=== PATIENT | male | born 1965 | race Caucasian/White ===

== ENCOUNTER 2023-11-28 15:33 | Emergency (ER) | payer BC ==
[2023-11-28] MEDS: diphenhydrAMINE 50 MG/ML SDV IVPUSH ONE (16:00)
[2023-11-28] MEDS: methylPREDNISolone Sodium Succinate 125 MG/2 ML SDV IVPUSH ONE (16:00)
[2023-11-28] MEDS: Sodium Chloride 0.9% 10 ML Syringe FLUSH PRN (16:00)
[2023-11-28] MEDS: Famotidine 20 MG/2 ML SDV IVPUSH ONE (16:28)
[2023-11-28] MEDS: EPINEPHrine 1 MG/ML SDV IM ONE (16:37)
[2023-11-28 19:43] VITALS: BP 155/87; PULSE 78
== END 2023-11-28 19:40 | disposition home or self-care (01) ==
LOC: JD.ED 15:33
DX: T78.3XXA Angioneurotic edema, initial encounter (principal); I10 Essential (primary) hypertension; E11.9 Type 2 diabetes mellitus without complications; Z79.84 Long term (current) use of oral hypoglycemic drugs; Z79.899 Other long term (current) drug therapy; X58.XXXA Exposure to other specified factors, initial encounter
CPT/HCPCS: 96372; 96374; 96375; 99283; J0171; J1200; J2919; J3490

== ENCOUNTER 2023-12-13 07:33 | Emergency (ER) | payer BC ==
[2023-12-13] MEDS: Sodium Chloride 0.9% 10 ML Syringe FLUSH PRN (08:08)
[2023-12-13] MEDS: methylPREDNISolone Sodium Succinate 125 MG/2 ML SDV IVPUSH ONE (08:09)
[2023-12-13] MEDS: Famotidine 20 MG/2 ML SDV IVPUSH ONE (08:09)
[2023-12-13] MEDS: diphenhydrAMINE 50 MG/ML SDV IVPUSH ONE (08:09)
[2023-12-13 10:00] VITALS: BP 132/87; PULSE 77
== END 2023-12-13 09:25 | disposition home or self-care (01) ==
LOC: JD.ED 07:33
DX: T78.3XXA Angioneurotic edema, initial encounter (principal); I10 Essential (primary) hypertension; E11.9 Type 2 diabetes mellitus without complications; Z86.16 Personal history of COVID-19; Z79.84 Long term (current) use of oral hypoglycemic drugs; Z79.899 Other long term (current) drug therapy
CPT/HCPCS: 96374; 96375; 99283; J1200; J2919; J3490; 99284